=== PATIENT | female | born 1940 | race Caucasian/White ===

== ENCOUNTER → 2020-12-21 | Outpatient (CLI) | payer MEDICARE ==
--- NOTE | 2020-12-21 16:51 | CARD ---
MR#: [id number] Date of Study: 12/21/2020 Ordering Physician: CRYSTAL HENDERSON, Referring Physician: CRYSTAL HENDERSON Tech: Antione Tellez [facility] APPROVED REPORT EXAM: Two-dimensional and M-mode echocardiogram with Doppler and color Doppler. Other Information Quality : FairHR: 88bpm Rhythm : NSR INDICATION Aortic Valve Disease RISK FACTORS Hypertension Hyperlipidemia 2D DIMENSIONS Left Atrium(2D)3.8 (1.6-4.0cm)IVSd1.0 (0.7-1.1cm) Aortic Root(2D)2.8 (2.0-3.7cm)LVDd3.7 (3.9-5.9cm) LVOT Diameter1.7 (1.8-2.4cm)PWd1.0 (0.7-1.1cm) LVDs2.8 (2.5-4.0cm)FS (%) 25.2 % SV29.2 mlLVEF(%)50.6 (>50%) Aortic Valve AoV Peak Maynor.159.7cm/sAoV VTI28.0cm AO Peak GR.10.2mmHgLVOT Peak Maynor.133.6cm/s AO Mean GR.6mmHgAVA (VMAX)1.91cm2 Mitral Valve MV E Urlbcvhm32.4cm/sMV E Peak Gr.7mmHg MV DECEL [id number] A Bactusvt513.0cm/s MV E Mean Gr.3mmHgE/A Ratio0.5 MV A [id number] Pulmonary Valve PV Peak Jafzvvye852.3cm/s Tricuspid Valve TR P. Tsgkkdle037xh/sTR Peak Gr.27mmHg Pulmonary Vein S1 Edzbdmhx35.8cm/sD2 Knirkcpo77.8cm/s PVa [id number] LEFT VENTRICLE The left ventricle is normal size. There is normal left ventricular wall thickness. The left ventricu lar systolic function is normal. The ejection fraction is 65%. There is normal LV segmental wall leonidas on. Transmitral Doppler flow pattern is Grade I-abnormal relaxation pattern. No left ventricle thromb us noted on this study. There is no ventricular septal defect visualized. RIGHT VENTRICLE The right ventricle is normal size. There is normal right ventricular wall thickness. The right ventr icular systolic function is normal. ATRIA The left atrium is mildly dilated. The right atrium is mildly dilated. The interatrial septum is inta ct with no evidence for an atrial septal defect or patent foramen ovale as noted on 2-D or Doppler im aging. AORTIC VALVE The aortic valve is probably trileaflet. Doppler and Color Flow revealed no significant aortic regurg itation. There is no significant aortic valvular stenosis. MITRAL VALVE The mitral valve is normal in structure and function. There is no evidence of mitral valve prolapse. There is no mitral valve stenosis. Doppler and Color Flow revealed trace mitral valve regurgitation. TRICUSPID VALVE The tricuspid valve is normal in structure and function. Doppler and Color Flow revealed no tricuspid valve regurgitation noted. There is no tricuspid valve prolapse or vegetation. There is no tricuspid valve stenosis. PULMONIC VALVE The pulmonary valve is normal in structure and function. Doppler and Color Flow revealed no pulmonic valvular regurgitation. There is no pulmonic valvular stenosis. GREAT VESSELS The aortic root is normal in size. The ascending aorta is normal in size. The pulmonary artery is nor mal. PERICARDIAL EFFUSION There is no pleural effusion. There is no evidence of significant pericardial effusion. Critical Notification Critical Value: No <Conclusion> The left ventricular systolic function is normal. The ejection fraction is 65%. There is normal LV segmental wall motion. Transmitral Doppler flow pattern is Grade I-abnormal relaxation pattern. The left atrium is mildly dilated. Trace mitral valve regurgitation. There is no evidence of significant pericardial effusion. Signed by : Jacek Caballero, Electronically Approved : 12/21/2020 16:51:09
== END ==
LOC: ECHO 10:06
PROVIDERS: ATTEND Family Medicine
DX: I35.0 Nonrheumatic aortic (valve) stenosis (principal)
CPT/HCPCS: 93306